=== PATIENT | female | born 1985 | race Caucasian/White ===

== ENCOUNTER 2022-07-06 16:52 | Emergency (ER) | payer OTHER, SELFPAY ==
[2022-07-06 17:01] VITALS: BP 115/79; PULSE 81; RESP 18; TEMP 36.2; O2SAT 100; BMI 23.4
--- NOTE | 2022-07-06 17:04 | ED.BACK ---
HPI - Back Pain/Injury General Chief Complaint: Back Injury/Pain Stated Complaint: BACK INJURY Time Seen by Provider: 07/06/22 17:04 History of Present Illness HPI Narrative: 37-year-old female patient presents emergency department after stating that she fell down her steps (3-4) approximately 3-4 days prior 07/01/2022. Patient states since that time, she has developed increasing fatigue, myalgias, and now headache. In addition, she reports low back pain associated with the fall. She denies URI symptoms, cough, ear pain, or shortness of breath. She denies chest pain, abdominal pain, but she does report 1 episode of diarrhea 1 day prior to presentation. She reports some nausea without vomiting. She denies hitting her head or loss of consciousness during the fall. She is uncertain of the mechanism of fall. See nursing notes for details. Related Data Home Medications Medication Instructions Recorded Confirmed lorazepam 0.5 mg tablet 0.5 mg PO TID PRN 07/04/22 Previous Rx's Medication Instructions Recorded citalopram 20 mg tablet 30 mg PO QDAY #135 tabs 07/04/22 tramadol 50 mg tablet (Ultram) 50 mg PO BID PRN pain #6 tabs 07/06/22 Allergies Allergy/AdvReac Type Severity Reaction Status Date / Time Sulfa Drugs Allergy Mild Rash Uncoded 07/04/22 09:18 Review of Systems Const: Denies: fever, chills, fatigue or malaise ENMT: Denies: throat pain, ear pain, nasal discharge or nasal congestion Cardio: Denies: chest pain, palpitations, swelling of feet/ankles or shortness of breath with exertion Resp: Denies: shortness of breath or cough GI: Reports: nausea and diarrhea; Denies: abdominal pain, vomiting or constipation Musculo: Reports: back pain Neuro: Reports: headache; Denies: difficulty communicating thoughts Endo: Denies: fatigue PFSH PFSH Social History Smoking Status: Never smoker How often do you have a drink containing alcohol: monthly or less AUDIT-C Alcohol total score: 1 Non-prescribed substance use: denies use service: No Exam Const: Vital Signs, click to edit/add: Vital Signs - 24 hr 07/06/22 17:01 07/06/22 17:35 07/06/22 21:18 Temperature 97.2 F L 97.2 F L Pulse Rate [Right Pulse Oximeter] 81 81 66 Respiratory Rate 18 18 66 H Blood Pressure [Ri ght Upper Arm] 115/79 115/79 108/71 Pulse Oximetry 100 100 97 Oxygen Delivery Me thod Room Air Room Air Room Air Documenting provider has reviewed patient's vital signs: yes Common normals: no apparent distress and oriented x3 General appearance: cooperative, comfortable and well developed; not in distress Orientation/consciousness: Yes awake, Yes oriented to person, Yes oriented to place and Yes oriented to time HENMT: Common normals: normocephalic, head/scalp atraumatic, hearing grossly normal bilaterally and external ears normal Head and scalp: normocephalic and atraumatic Face and sinus: normal facial exam (limited by masking) External ear: external ears normal Eye: Common normals: EOMs intact bilaterally General eye: normal appearance of both eyes Resp: Common normals: normal respiratory effort, no retractions, no use of accessory muscles and clear to auscultation bilaterally Effort & inspection: able to speak in complete sentences Auscultation: clear to auscultation bilaterally Cardio: Common normals: regular rate, regular rhythm, S1 normal heart sound, S2 normal heart sound, no gallops, no clicks, no murmurs and peripheral pulses 2+ throughout Rate: regular rate Rhythm: regular rhythm Heart sounds: S1 normal and S2 normal Peripheral pulses: pulses 2+ throughout Back & Pelvis: Common normals: thoracic and lumbar spine normal to inspection and no thoracic nor lumbar tenderness Lumbar spine/lower back: ROM limited Pelvis: no pain with anterior-posterior compression and no pain with lateral compression Sacrum: tenderness midline Coccyx: tenderness on direct palpation Extremity: Common normals: normal to inspection, full ROM, normal capillary refill, no clubbing, cyanosis or edema and no pedal edema Neuro: Common normals: oriented x3 Sensorium/orientation: awake, oriented to person, oriented to place and oriented to time Speech: speech normal Gait (neuro): normal gait Motor exam: no movement abnormalities noted Psych: Common normals: mental status grossly normal, thought process normal, speech normal and activity/motor behavior normal Appearance: grossly normal Speech: normal speech Thought process: normal thought process Thought content: normal thought content Attention/concentration: attention grossly intact Memory/cognition: memory grossly intact Insight: insight good Judgement: judgment good Skin: Common normals: no rashes or lesions noted General skin exam: no rashes or lesions noted Course Vital Signs Vital signs: Initial Vital Signs Temperature 97.2 F L 07/06/22 17:01 Temperature Source Temporal Artery Scan 07/06/22 17:01 Pulse Rate 81 07/06/22 17:01 Respiratory Rate 18 07/06/22 17:01 Blood Pressure 115/79 07/06/22 17:01 Blood Pressure Mean 91 07/06/22 17:01 Pulse Oximetry 100 07/06/22 17:01 Oxygen Delivery Method 07/06/22 17:01 Vital Signs Temperature 97.2 F L 07/06/22 17:01 Pulse Rate 81 07/06/22 17:01 Respiratory Rate 18 07/06/22 17:01 Blood Pressure 115/79 07/06/22 17:01 Pulse Oximetry 100 07/06/22 17:01 Oxygen Delivery Method 07/06/22 17:01 Temperature 97.2 F L 07/06/22 17:35 Pulse Rate 66 07/06/22 21:18 Respiratory Rate 66 H 07/06/22 21:18 Blood Pressure 108/71 07/06/22 21:18 Pulse Oximetry 97 07/06/22 21:18 Oxygen Delivery Method 07/06/22 21:18 MDM - Back Pain/Injury MDM Narrative Medical decision making narrative: Life-threatening differential diagnoses considered include: cauda equina and epidural abscess, mass, or lesion. Other differential diagnoses considered include: sprain or strain, contusion, nerve root entrapment, radiculopathy, muscle spasm, urolithiasis, lumbar fracture, pyelonephritis, ovaries injury, as well as other etiologies. The patient denied saddle anesthesia, bowel or bladder incontinence, or lower extremity weakness. Lab Data Labs: Lab Results 07/06/22 07/06/22 07/06/22 Range/Units 17:28 18:15 18:22 WBC 7.63 (4.50-11.00) K/uL RBC 4.34 (4.00-5.20) m/uL Hgb 11.7 L (12.0-16.0) gm/dL Hct 36.8 (33.0-51.0) % MCV 85 (80-100) fL MCH 27 (26-34) pg MCHC 32 (32-36) gm/dL RDW Coeff of Jamie 12.9 (11.5-15.5) % Plt Count 235 (140-440) K/uL Neut % (Auto) 67.2 (42.0-72.0) % Lymph % (Auto) 25.0 (20-44) % [place] % (Auto) 6.8 (0.0-11.0) % Eos % (Auto) 0.4 (0.0-7.0) % Baso % (Auto) 0.3 (0.0-3.0) % Neut # (Auto) 5.13 (1.7-7.0) K/uL Lymph # (Auto) 1.91 (0.90-2.90) K/uL [place] # (Auto) 0.50 (0.00-0.90) K/UL Eos # (Auto) 0.03 (0.00-0.50) K/uL Baso # (Auto) 0.02 (0.00-0.30) K/uL Abs Immat Gran (auto) 0.02 (0.00-0.30) K/uL Sodium (135-149) mmol/L Potassium (3.6-5.1) mmol/L Chloride (96-114) mmol/L Carbon Dioxide (20-32) mmol/L BUN (5-24) mg/dL Creatinine (0.5-1.5) mg/dL Estimated Creat Clear Estimated GFR ml/min Glucose (60-115) mg/dL Calcium (8.4-10.6) mg/dL Total Bilirubin (0.1-1.5) mg/dL AST (12-35) U/L ALT (4-35) U/L Alkaline Phosphatase (40-150) U/L Total Protein (6.0-8.3) g/dL Albumin (3.3-5.0) g/dL Urine Color Yellow (Yellow) Urine Appearance Clear (Clear) Urine pH 6.5 (5.0-8.5) Ur Specific [place] 1.015 (1.000-1.030) Urine Protein Negative (Negative) Urine Glucose (UA) Negative (Negative) Urine Ketones 1+ A (Negative) Urine Blood Negative (Negative) Urine Nitrite Negative (Negative) Urine Bilirubin Negative (Negative) Urine Urobilinogen 0.2 (0.2-1.0) Ur Leukocyte Esterase Negative (Negative) SARS-CoV-2 (PCR) Negative SARS-CoV-2 (Negative) 07/06/22 Range/Units 18:22 WBC (4.50-11.00) K/uL RBC (4.00-5.20) m/uL Hgb (12.0-16.0) gm/dL Hct (33.0-51.0) % MCV (80-100) fL MCH (26-34) pg MCHC (32-36) gm/dL RDW Coeff of Jamie (11.5-15.5) % Plt Count (140-440) K/uL Neut % (Auto) (42.0-72.0) % Lymph % (Auto) (20-44) % [place] % (Auto) (0.0-11.0) % Eos % (Auto) (0.0-7.0) % Baso % (Auto) (0.0-3.0) % Neut # (Auto) (1.7-7.0) K/uL Lymph # (Auto) (0.90-2.90) K/uL [place] # (Auto) (0.00-0.90) K/UL Eos # (Auto) (0.00-0.50) K/uL Baso # (Auto) (0.00-0.30) K/uL Abs Immat Gran (auto) (0.00-0.30) K/uL Sodium 135 (135-149) mmol/L Potassium 4.3 (3.6-5.1) mmol/L Chloride 104 (96-114) mmol/L Carbon Dioxide 26 (20-32) mmol/L BUN 13 (5-24) mg/dL Creatinine 0.7 (0.5-1.5) mg/dL Estimated Creat Clear 85.34 Estimated GFR 113 ml/min Glucose 91 (60-115) mg/dL Calcium 8.5 (8.4-10.6) mg/dL Total Bilirubin 1.4 (0.1-1.5) mg/dL AST 27 (12-35) U/L ALT 11 (4-35) U/L Alkaline Phosphatase 61 (40-150) U/L Total Protein 7.1 (6.0-8.3) g/dL Albumin 4.1 (3.3-5.0) g/dL Urine Color (Yellow) Urine Appearance (Clear) Urine pH (5.0-8.5) Ur Specific [place] (1.000-1.030) Urine Protein (Negative) Urine Glucose (UA) (Negative) Urine Ketones (Negative) Urine Blood (Negative) Urine Nitrite (Negative) Urine Bilirubin (Negative) Urine Urobilinogen (0.2-1.0) Ur Leukocyte Esterase (Negative) SARS-CoV-2 (PCR) (Negative) Discharge Plan Discharge Clinical Impression: Fall (on) (from) other stairs and steps, initial encounter, Myalgia, traumatic Patient Disposition: Home, Self-Care Condition: Stable Instructions: Bone Bruise (ED) Additional Instructions: Thank you for choosing [facility] for your care today. Take NSAIDs (Ibuprofen, Motrin, Advil, or substitute) 600-800mg three times daily for the next three days. Decrease to twice daily for the next two days. Take NSAIDs once daily for 1wk. I have also sent pain medication. Please take pain medication as prescribed. Patient also given prescription for muscle relaxant to assist with control of symptoms. The patient is advised to use heat/ice as needed for symptom control. I recommend following up with your primary physician in 1-2wks if a significant improvement of symptoms is not noted. Continue routine activity as tolerated. You may consider topical medications including capsaicin or lidocaine patches to assist with symptom control. If new or worsening symptoms develop or you have any concerns in the meantime, please call your primary care clinic or return to the ER for re-evaluation. Activity Level: Activity as Tolerated Discharge Diet: Regular and Heart Healthy (2 gm sodium, low fat) Diet Detail: Increase water intake. Prescriptions: New tramadol [Ultram] 50 mg tablet 50 mg PO BID PRN (Reason: pain) Qty: 6 0RF No Action lorazepam 0.5 mg tablet 0.5 mg PO TID PRN citalopram 20 mg tablet 30 mg PO QDAY Qty: 135 3RF Follow Up/Referrals: Humberto Boyd MD [Primary Care Provider] - 07/13/22 Stand Alone Forms: [employer] Info Instructions
[2022-07-06] MEDS: KETOROLAC 30 MG/ML inj IM (17:28)
[2022-07-06 17:35] VITALS: BP 115/79; PULSE 81; RESP 18; TEMP 36.2; O2SAT 100
[2022-07-06] MEDS: 0.9 % SODIUM CHLORIDE 1000 ml 1,000 ML IV (18:24)
[2022-07-06] MEDS: MORPHINE 2 MG/ML inj IVP (18:39)
[2022-07-06] MEDS: ONDANSETRON ODT 4 MG TAB PO (18:39)
[2022-07-06 18:45] LABS: Basophils Absolute Auto 0.02 K/uL (0.00-0.30); Basophils Percent Auto 0.3 % (0.0-3.0); Eosinophils Absolute Auto 0.03 K/uL (0.00-0.50); Eosinophils Percent Auto 0.4 % (0.0-7.0); Hematocrit 36.8 % (33.0-51.0); Hemoglobin* 11.7 gm/dL (12.0-16.0); Immature Granulocytes Abs Auto 0.02 K/uL (0.00-0.30); Lymphocytes Absolute Auto 1.91 K/uL (0.90-2.90); Mean Corpuscular HGB Conc 32 gm/dL (32-36); Mean Corpuscular Hemoglobin 27 pg (26-34); Mean Corpuscular Volume 85 fL (80-100); Monocytes Percent Auto 6.8 % (0.0-11.0); Neutrophils Absolute Auto 5.13 K/uL (1.7-7.0); Neutrophils Percent Auto 67.2 % (42.0-72.0); Platelet Count* 235 K/uL (140-440); RDW Coefficient of Variation % 12.9 % (11.5-15.5); Red Blood Count 4.34 m/uL (4.00-5.20); White Blood Count* 7.63 K/uL (4.50-11.00)
[2022-07-06 18:50] LABS: Appearance Urine Clear (Clear); Bilirubin Urine Negative (Negative); Blood Urine Negative (Negative); Color Urine Yellow (Yellow); Glucose Urine Negative (Negative); Ketones Urine 1+ (Negative); Leukocyte Esterase Urine Negative (Negative); Nitrite Urine Negative (Negative); Protein Urine Negative (Negative); Specific Gravity Urine 1.015 (1.000-1.030); Urobilinogen Urine 0.2 (0.2-1.0); pH Urine 6.5 (5.0-8.5)
[2022-07-06 18:52] LABS: SARS PCR* Negative SARS-CoV-2 (Negative)
[2022-07-06 18:52] LABS: Slide Review Reflex No
[2022-07-06 19:16] LABS: Albumin* 4.1 g/dL (3.3-5.0); Chloride* 104 mmol/L (96-114); Sodium* 135 mmol/L (135-149)
[2022-07-06 19:17] LABS: Potassium* 4.3 mmol/L (3.6-5.1)
[2022-07-06 19:19] LABS: Alanine Aminotransferase* 11 U/L (4-35); Alkaline Phosphatase* 61 U/L (40-150); Aspartate Amino Transferase* 27 U/L (12-35); Bilirubin Total* 1.4 mg/dL (0.1-1.5); Blood Urea Nitrogen* 13 mg/dL (5-24); Carbon Dioxide* 26 mmol/L (20-32); Creatinine* 0.7 mg/dL (0.5-1.5); Est. Creatinine Clearance* 85.34; Estimated Glomerular Filt Rate 113 ml/min; Glucose* 91 mg/dL (60-115); Total Protein* 7.1 g/dL (6.0-8.3)
[2022-07-06 19:20] LABS: Calcium* 8.5 mg/dL (8.4-10.6)
--- NOTE | 2022-07-06 19:43 | CRLHL7_ITS ---
For Patients: As a result of the Century Cures Act, medical imaging exams and procedure reports are released immediately into your electronic medical record. You may view this report before your referring provider. If you have questions, please contact your health care provider. INDICATION: Fall with acute headache TECHNIQUE: CT head without contrast. COMPARISON: None FINDINGS: CSF spaces: Within normal limits for age. Brain parenchyma: The goff-white differentiation is normal. No sign of mass, hemorrhage, or midline shift. Skull base and calvarium: The visualized paranasal sinuses and mastoid air cells demonstrate no acute or significant findings. The visualized orbits are grossly unremarkable. No skull fractures. IMPRESSION: Unremarkable noncontrast head CT. Please note that all CT scans at this facility use dose modulation, iterative reconstruction, and/or weight-based dosing when appropriate to reduce radiation dose to as low as reasonably achievable. Dictated by Jenny Davidson MD @ 07/06/2022 8:13:14 PM (Electronically Signed)
--- NOTE | 2022-07-06 19:43 | CRLHL7_ITS ---
For Patients: As a result of the Century Cures Act, medical imaging exams and procedure reports are released immediately into your electronic medical record. You may view this report before your referring provider. If you have questions, please contact your health care provider. INDICATION: Fall TECHNIQUE: CT cervical spine without contrast. COMPARISON: None FINDINGS: Vertebral alignment: Alignment is normal. Vertebrae: There are no fractures or suspicious bony lesions. Discs and facet joints: Disc spaces and facets are within normal limits. Extraspinal findings: Prevertebral soft tissues, visualized airway, and visualized lungs are unremarkable. IMPRESSION: Unremarkable cervical spine CT. Please note that all CT scans at this facility use dose modulation, iterative reconstruction, and/or weight-based dosing when appropriate to reduce radiation dose to as low as reasonably achievable. Dictated by Jenny Davidson MD @ 07/06/2022 8:16:25 PM (Electronically Signed)
[2022-07-06 21:18] VITALS: BP 108/71; PULSE 66; RESP 66; O2SAT 97
== END 2022-07-06 21:50 | disposition home or self-care (01) ==
PROVIDERS: Emergency Provider Family Medicine; PCP Family Medicine
DX: M54.9 Dorsalgia, unspecified (principal); W10.8XXA Fall (on) (from) other stairs and steps, initial encounter
CPT/HCPCS: 36415; 70450; 72125; 80053; 81003; 85025; 87635; 96372; 96374; 99283; 99284; A9270; J1885; J2270; J7030

== ENCOUNTER 2022-12-18 15:40 | Outpatient (CLI) | payer OTHER, SELFPAY ==
--- NOTE | 2022-12-18 15:40 | CRLHL7_ITS ---
For Patients: As a result of the Century Cures Act, medical imaging exams and procedure reports are released immediately into your electronic medical record. You may view this report before your referring provider. If you have questions, please contact your health care provider. BILATERAL SCREENING MAMMOGRAM WITH COMPUTER-AIDED DETECTION AND TOMOSYNTHESIS TECHNIQUE: CC and MLO views were obtained. These mammographic images have been obtained using full-field digital technique. These mammographic images were interpreted with the benefit of computer-aided detection. Breast Tomosynthesis was used in this interpretation. COMPARISON FILM: 05/26/21, 09/01/19. FINDINGS: There are scattered areas of fibroglandular density IMPRESSION: There is no radiographic evidence for malignancy. ASSESSMENT: BI-RADS Category 1: Negative RECOMMENDATION: Routine screening mammogram in 1 year. A lay language report of this examination will be provided to the patient. Jeison Goff M.D. Diagnostic Radiologist [email or web address] CONRAD/Dictated by: Jeison Goff MD @ 12/19/2022 11:07:00 AM (Electronically Signed)
== END 2022-12-18 15:41 | disposition home or self-care (01) ==
LOC: MAMMO 15:41
PROVIDERS: PCP Family Medicine; Visit Provider Family Medicine
DX: Z12.31 Encounter for screening mammogram for malignant neoplasm of breast (principal)
CPT/HCPCS: 77063; 77067

== ENCOUNTER 2023-07-09 16:45 | Outpatient (RCR) | payer OTHER, SELFPAY | END 2023-10-11 11:42 | disposition home or self-care (01) | PROVIDERS: PCP Family Medicine; Visit Provider Internal Medicine | DX: M54.2 Cervicalgia (principal); Z51.89 Encounter for other specified aftercare | CPT/HCPCS: 97032; 97110; 97140; 97161 ==

== ENCOUNTER 2024-10-19 17:43 | Outpatient (CLI) | payer OTHER, SELFPAY ==
--- OUTSIDE RECORDS SUMMARY | 2024-10-19 17:45 | XMS_ITS | Clinical Summary ---
Author Organization [facility] Address [address] [address] Phone Care Team Providers Care Sales Operations Assistant Name Role Phone Unavailable Primary Care Provider Unavailabl e Allergies Active Allergy Reactions Criticality Noted Date Comments Sulfa Drugs Unknown 11/21/2023 Social History Tobacco Use Types Packs/Day Years Used Date Smoking Tobacco: Never Assessed EH IP Custom IPV Answer Date Recorded Do you feel UNSAFE in any of your personal relationships with your family members or any other acquaintances? No 2023 Comments Unknown Sex and Gender Information Value Date Recorded Sex Assigned at Not on file Legal Sex Female 12:00 PM MEDIA THEORIST AND AUTHOR OF Gender Identity Not on file Sexual Orientation Not on file Last Filed Vital Signs Vital Sign Reading Time Taken Comments Blood Pressure 144/91 11/21/2023 12:53 PM MEDIA THEORIST AND AUTHOR OF Pulse 78 11/21/2023 12:53 PM MEDIA THEORIST AND AUTHOR OF Temperature 36.6 C (97.8 F) 11/21/2023 12:53 PM MEDIA THEORIST AND AUTHOR OF Respiratory Rate 24 11/21/2023 12:53 PM MEDIA THEORIST AND AUTHOR OF Oxygen Saturation 100% 11/21/2023 12:53 PM MEDIA THEORIST AND AUTHOR OF Inhaled Oxygen Concentration - - Weight - - Height - - Body Mass Index - - Plan of Treatment Not on file Insurance [employer]
--- OUTSIDE RECORDS SUMMARY | 2024-10-19 17:45 | XMS_ITS | Clinical Summary ---
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 Blood product orders may be delayed. Please draw 2 purple and 2 large red top tubes for all Type and Screen/RBC orders. Sulfa (Sulfonamide Antibiotics) Rash 07/09/2014 Medications VIT/IRON FUMARATE/FA ( ORAL) Take by mouth. Activ e citalopram (CELEXA) 10 mg tablet Take 20 mg by mouth once daily. Active oxyCODONE-acet aminophen, 5-325 mg, (PERCOCET) per tablet Take 1-2 tablets by mouth every 4 hours if needed for Pain (For moderate to severe pain.). Max acetaminophen dose: 4000mg in 24 hrs. 30 tablet 08/20/2014 10:53 AM CDT 4 Active ibuprofen (MOTRIN IB) 200 mg tablet Take 1-3 tablets by mouth every 6 hours if needed for Other (Specify) (for uterine cramping). Take with food. 100 tablet 0 4 Active ferrous sulfate, 65 mg elemental, 325 mg (65 mg iron) tablet Take 1 tablet by mouth once daily with a meal. 100 tablet 0 4 Active Breast Pump - Purchase For home use. Gestation age at delivery: 38 weeks. Reason for need: lactating mother - twins. Length of need: 12 mo 1 Device 0 4 Active Breast Pump-Rental For home use. Gestation age at delivery: 38 weeks. Reason for need: twins, lactating mother. Length of need: 6 mo. 1 Device 0 4 Active Active Problems Problem Noted Date Diagnosed Date Immediate hemorrhage, with delivery 1 Overview (08/18/2014): With Postoperative anemia due to acute blood loss 06/2014 Failed induction of labor 08/17/2014 Arrest of dilation, delivered, current hospitali zation 08/17/2014 delivery delivered 08/17/2014 Supervision of high-risk 08/17/2014 Dichorionic diamniotic twin 08/13/2014 Social History Tobacco Use Types Packs/Day Years Used Date Smoking Tobacco: Never Smokeless Tobacco: Never Alcohol Use Standard Drinks/Week Comments Not Asked 0 (1 standard drink = 0.6 oz pur e alcohol) Comments No Sex and Gender Information Value Date Recorded Sex Assigned at Not on file Legal Sex Female 8:24 AM CDT Gender Identity Not on file Sexual Orientation Not on file Obstetrics History Para Term AB IAB SAB Ectopic Multiple Livin g Live Births 1 1 1 1 2 2 Date Outcome GA Total Labor Labor/2nd/3rd Weight Sex Type Anes PTL Kavya A1 A5 Name Clin 014 Term 38w 2d 2.75 kg (6 lb 1 oz) M CS-LT ranv Living 4 6 ROOT, BB ONE Delivery Location:[facility] 014 Term 38w 2d 2.58 kg (5 lb 11 oz) F CS-LT ranv Living 8 9 ROOT, BG TWO Delivery Location:[facility] Last Filed Vital Signs Vital Sign Reading Time Taken Comments Blood Pressure 150/83 08/20/2014 11:00 AM CDT up walking in room Pulse 86 08/20/2014 11:00 AM CDT Temperature 36.8 C (98.3 F) 08/20/2014 8:48 AM CDT Respiratory Rate 16 08/20/2014 11:0 0 AM CDT Oxygen Saturation 98% 08/20/2014 11: 00 AM CDT Inhaled Oxygen Concentration - - Weight 81.1 kg (178 lb 11.2 oz) 08/20/2014 12:16 AM CDT Height 156.2 cm (5' 1.5) 08/15/2014 4: 00 PM CDT Body Mass Index 33.22 08/15/2014 4:00 PM CDT Plan of Treatment Health Maintenance Due Date Last Done Comments Tdap 1994 Depression screening for age 12+ 1995 HIV for age 15-65 1998 BMI (ht and wt on same day) for age 18+ 2001 Hepatitis C screening for ag e 18-79 2001 Tetanus booster 2003 Pap test for age 21-65 07/03/2022 9, 07/03/2019 COVID-19 vaccine series (2023- season) 2024 Influenza for age 9-49 07/12/2024 Pneumococcal series for age 6-64 Aged Out No longer eligible b ased on patient's age to complete this topic Procedures Procedure Name Priority Date/Time Associated Diagnosis Comments GRIEF COUNSELOR THIN PREP PAP SCREEN IMAGED Routine 07/03/2019 9:30 AM CDT from Last 3 Months or Most Recently Relevant to Health Maintenance Results * GRIEF COUNSELOR THIN PREP PAP SCREEN IMAGED (07/03/2019 9:30 AM CDT) Case Report Gynecologic Cytology Report Case: [id number] Authorizing Provider: Humberto Boyd MD Collected: 07/03/2019 0930 Ordering Location: [facility] Received: 07/03/2019 1728 First Screen: Roxanne Mcleod Specimen: GRIEF COUNSELOR ThinPrep Vial Screening, Cervical/Vaginal 07/15/2019 1:37 PM CDT [facility] INTERPRETATION/ RESULT NEGATIVE FOR INTRAEPITHELIAL LESION OR MALIGNANCY (NIL) (none) 07/15/2019 1:37 PM CDT [facility] IMEN ADEQUACY Satisfactory for evaluation Endocervical component present 07/15/2019 1:37 PM CDT [facility] HPV REQUEST HPV and PAP 07/15/2019 1:37 PM CDT [facility] Date of LMP 06/07/2019 07/15/2019 1:37 PM CDT [facility] Last Pap Date 07/15/2019 1:37 PM CDT [facility] Comment:2012 Automated Review Successful 07/15/2019 1:37 PM CDT [facility] Comment:Specimen processed s uccessfully by automated shear operator helper device, FlavourlyPrep Imaging System, [employer] ANCILLARY TESTING GRIEF COUNSELOR HPV Ordered, Please see separate report 07/15/2019 1:37 PM CDT [facility] Note The pap test is a screening technique, not a diagnostic procedure. It is used primarily to screen for squamous cancers and precursor lesions. Published studies have shown that it is subject to both false negative and false positive results. The pap test should not be used as the sole means to diagnose or exclude pre-malignant and malignant lesions. Cytology is screened and interpreted at [facility] - [address], [place] [address] and [facility] - [address]; [place] [address] and [facility] - [address]; [place] [address] and [facility] [address]; [place] [address] 07/15/2019 1:37 PM CDT [facility] Other (Cervical/Vagina l) 07/03/2019 9:30 AM CDT 07/03/2019 5:28 PM CDT us Humberto Boyd MD PATHOLOGY/CYTOLOGY Final Re sult [facility] [address] [place] [address], from Last 3 Months or Most Recently Relevant to Health Maintenance Insurance [facility] Advance Directives * Full Code (Latest Code Status on File) Date Activated Date Inactivated Comments 08/15/2014 4:19 PM 08/17/2014 2:45 PM Care Teams Stunt Performer Relationship Specialty Start Date End Date Jennifer Gay DO [address] [place] [id number] PCP - General Obstetrics and Gynecology 06/17/14
[2024-10-22 02:11] LABS: HPV Source Cervix; HPV, High Risk by TMA Not Detected
== END 2024-10-19 17:44 | disposition home or self-care (01) ==
PROVIDERS: PCP Family Medicine; Visit Provider Physician Assistant
DX: Z12.4 Encounter for screening for malignant neoplasm of cervix (principal)
CPT/HCPCS: 87624; 87625; 88141; 88142

== ENCOUNTER 2024-10-22 15:07 | Outpatient (CLI) | payer OTHER, SELFPAY | END 2024-10-22 15:08 | disposition home or self-care (01) | LOC: NFLDREF 10-23 08:46 | PROVIDERS: PCP Family Medicine; Referring Provider Family Medicine; Visit Provider Physician Assistant | DX: Z13.220 Encounter for screening for lipoid disorders (principal); Z13.1 Encounter for screening for diabetes mellitus | CPT/HCPCS: 80061; 82947 ==

== ENCOUNTER 2024-10-22 15:11 | Outpatient (CLI) | payer OTHER, SELFPAY ==
--- NOTE | 2024-10-22 15:40 | CRLHL7_ITS ---
For Patients: As a result of the Century Cures Act, medical imaging exams and procedure reports are released immediately into your electronic medical record. You may view this report before your referring provider. If you have questions, please contact your health care provider. BILATERAL SCREENING MAMMOGRAM WITH COMPUTER-AIDED DETECTION AND TOMOSYNTHESIS TECHNIQUE: CC and MLO views were obtained. These mammographic images have been obtained using full-field digital technique. These mammographic images were interpreted with the benefit of computer-aided detection. Breast Tomosynthesis was used in this interpretation. COMPARISON FILM: 12/18/22. FINDINGS: The breasts are heterogeneously dense, which may obscure small masses. IMPRESSION: There is no radiographic evidence for malignancy. ASSESSMENT: BI-RADS Category 2: Benign RECOMMENDATION: Routine screening mammogram in 1 year. A lay language report of this examination will be provided to the patient. Jeison Goff M.D. Diagnostic Radiologist [email or web address] SP/Dictated by: Jeison Goff MD @ 10/23/2024 10:28:00 AM (Electronically Signed)
== END 2024-10-22 15:12 | disposition home or self-care (01) ==
LOC: MAMMO 15:11
PROVIDERS: PCP Family Medicine; Visit Provider Obstetrics & Gynecology
DX: Z12.31 Encounter for screening mammogram for malignant neoplasm of breast (principal); R92.333 Mammographic heterogeneous density, bilateral breasts
CPT/HCPCS: 77063; 77067

== ENCOUNTER 2025-02-18 12:48 | Emergency (ER) | payer OTHER, SELFPAY ==
--- OUTSIDE RECORDS SUMMARY | 2025-02-18 12:50 | XMS_ITS | Clinical Summary ---
Author Organization [facility] Address [address] [address] Phone Care Team Providers Care Hydrate Control Tender Name Role Phone Unavailable Primary Care Provider [...] on file Legal Sex Female 12:00 PM ANIMAL NURSERY WORKER Gender Identity Not on file Sexual Orientation Not on file Last Filed Vital Signs Vital Sign Reading Time Taken Comments Blood Pressure 144/91 11/21/2023 12:53 PM ANIMAL NURSERY WORKER Pulse 78 11/21/2023 12:53 PM ANIMAL NURSERY WORKER Temperature 36.6 C (97.8 F) 11/21/2023 12:53 PM ANIMAL NURSERY WORKER Respiratory Rate 24 11/21/2023 12:53 PM ANIMAL NURSERY WORKER Oxygen Saturation 100% 11/21/2023 12:53 PM ANIMAL NURSERY WORKER Inhaled Oxygen Concentration - - Weight - - Height - - Body Mass Index - - Plan of Treatment Not on file Insurance [employer]
--- OUTSIDE RECORDS SUMMARY | 2025-02-18 12:50 | XMS_ITS | Clinical Summary ---
Author Organization [facility] Address [address] [place] [address] Care Team Providers Care Non Destructive Testing Technician Name Role Phone Jennifer Gay DO Primary [...] 08/17/2014 Arrest of dilation, delivered, current hospital[facility] 08/17/2014 delivery delivered 08/17/2014 Supervision of high-risk [...] Anes PTL Kavya A1 A5 Name Clin Term 38w 2d 2.75 kg (6 lb 1 oz) M CS-LT ranv Living 4 6 ROOT, BB ONE Delivery Location:[facility] 014 Term 38w 2d 2.58 kg (5 lb 11 oz) F CS-LT ranv Living 8 9 ROOT, BG TWO Delivery Location:[facility] Last Filed Vital Signs Vital Sign Reading [...] 2003 Pap test for age 21-65 07/03/2022 , 07/03/2019 COVID-19 vaccine series (2023- season) 2024 Influenza Vaccine (Season Ended) 2025 Pneumococcal series for age 6-49 Aged Out No longer eligible b ased on patient's age to complete this topic Procedures Procedure Name Priority Date/Time Associated Diagnosis Comments INVESTIGATOR FRAUD THIN PREP PAP SCREEN IMAGED Routine 07/03/2019 9:30 AM CDT from Last 3 Months or Most Recently Relevant to Health Maintenance Results * INVESTIGATOR FRAUD THIN PREP PAP SCREEN IMAGED (07/03/2019 9:30 AM CDT) Case Report Gynecologic Cytology Report Case: [id number] Authorizing Provider: Humberto Boyd MD Collected: 07/03/2019 0930 Ordering Location: [facility] Received: 07/03/2019 1728 First Screen: Roxanne Mcleod Specimen: INVESTIGATOR FRAUD ThinPrep Vial Screening, Cervical/Vaginal 07/15/2019 1:37 PM CDT [facility] ENTRAL LABORATORY INTERPRETATION/ RESULT NEGATIVE FOR INTRAEPITHELIAL LESION OR MALIGNANCY (NIL) (none) 07/15/2019 1:37 PM CDT [facility] ENTRAL LABORATORY at 1337 CDT SPECIMEN ADEQUACY Satisfactory for evaluation Endocervical component present 07/15/2019 1:37 PM CDT [facility] ENTRAL LABORATORY HPV REQUEST HPV and PAP 07/15/2019 1:37 PM CDT [facility] ENTRAL LAB[facility]AT[facility] Date of LMP 06/07/2019 07/15/2019 1:37 PM CDT [facility]- ENTRAL LAB[facility]AT[facility] Last Pap Date 07/15/2019 1:37 PM CDT [facility] ENTRAL LABORATORY Comment:2012 Automated Review Successful 07/15/2019 1:37 PM CDT [facility] ENTRAL LABORATORY Comment:Specimen processed s uccessfully by automated usps letter carrier device, ThinPrep Imaging System, [employer] ANCILLARY TESTING INVESTIGATOR FRAUD HPV Ordered, Please see separate report 07/15/2019 1:37 PM CDT [facility] ENTRAL LABORATORY Note The pap test is a [...] lesions. Cytology is screened and interpreted at [facility] - [address], [place] [address] and [facility] - [address]; [place] [address] and [facility] - [address]; [place] [address] and [facility] [address]; [place] [address] 07/15/2019 1:37 PM CDT [facility] ENTRDE LABORATORY Other (Cervical/Vagina l) 07/03/2019 9:30 AM CDT 07/03/2019 5:28 PM CDT us Humberto Boyd MD PATHOLOGY/CYTOLOGY Final [facility] [address] [place] [address], [place] from Last 3 Months or Most Recently Relevant to Health Maintenance Insurance [facility] Advance Directives * Full Code (Latest Code Status on File) Date Activated Date Inactivated Comments 08/15/2014 4:19 PM 08/17/2014 2:45 PM Care Teams Non Destructive Testing Technician Relationship Specialty Start Date End Date Jennifer Gay DO [address] [address] PCP - General Obstetrics and Gynecology 06/17/14
[2025-02-18 13:11] VITALS: BP 118/80; PULSE 86; RESP 18; TEMP 37.3; O2SAT 100; BMI 23.8
--- NOTE | 2025-02-18 13:22 | ED_ITS ---
HPI - General Adult General Date Seen: 02/18/25 Chief complaint: Neck Injury/Pain Stated complaint: neck pain- left arm numness Time Seen by Provider: 02/18/25 13:14 History of Present Illness HPI narrative: 40 yo F presenting for pain in her left neck and shoulder. According triage nurses she has had trouble with neck pain since 2022 and has had physical therapy and care professionals. This morning her pain worsened. She rates it /10. Per medical record she has a visit to the primary clinic with Dr. Staton in May 2023 for neck pain. According to note pain at been ongoing off and on for several months at that time. She was referred for physical therapy. Given a prescription for steroids. She has been dealing with her neck pain off and on since then. She was referred to physical therapy and did that. She has also been seeing a chiropractor. Her chiropractor had recommended several months ago that she get imaging of her neck but she has been putting it off since has not been too severe. She is otherwise generally healthy. No history of diabetes, cancer, immunosuppression. She has no recent injury or any change in her activity. She was awoken from sleep at about 3:00 a.m. this morning with new bad pain affecting her left neck, left shoulder and radiating down her left arm. She feels like her left arm is a little bit numb and heavy. She does not really localize the most any particular spot but if anything gets worse in the finger tips than in the upper arm. No right arm symptoms. No pain in her low back or legs. No headache. No blurry vision. No trouble hearing. No double vision. Related Data Previous Rx's ?Medication ?Instructions ?Recorded lorazepam 0.5 mg tablet 0.5 mg PO TID PRN anxiety #30 tabs 09/21/24 citalopram 20 mg tablet 30 mg (1.5 x 20 mg) PO QDAY #135 02/16/25 tabs hydrocodone 5 mg-acetaminophen 325 1 tab PO Q6H PRN pain #10 tabs 02/18/25 mg tablet methylprednisolone 4 mg tablets in See Rx Instructions PO .COMPLEX 02/18/25 a dose pack (Medrol (Jefe)) #21 ea Allergies Allergy/AdvReac Type Severity Reaction Status Date / Time Sulfa (Sulfonamide Allergy Mild Rash Verified 02/18/25 13:11 Antibiotics) [facility] Surgical History Status post D&C ?Z98.890 - Other specified postprocedural states (ICD-10) S/P tubal ligation ?Z98.51 - Tubal ligation status (ICD-10) Status post ?Z98.891 - History of uterine scar from previous surgery (ICD-10) Family History Mother Breast cancer, Onset Age: 67 Ovarian cancer, Onset Age: 66 Aunt Breast cancer, Onset Age: 40 Maternal Grandmother Breast cancer Paternal Grandmother Breast cancer Social History Narrative: Teacher. Master's degree Nonsmoker Alcohol use: 1-2 per month What is your current living situation?: I presently have a place to live Problems where you live: no known problems and declined to answer In the past 12 months, utilities in danger of being shut off: no In past 12 months, lack of transportation kept you from medical appts, meetings, work, or getting things needed for daily living: no In the past 12 mos, have been you worried that your food would run out before you had money to buy more?: never true In the past 12 mos, the food you bought just didn't last and you didn't have money to buy more?: never true Smoking Status: Never smoker Do you use any of these nicotine containing products: None How often do you have a drink containing alcohol: monthly or less How many standard drinks containing alcohol do you have on a typical day: 1 or 2 How often do you have six or more drinks on one occasion: Never AUDIT-C Alcohol total score: 1 Non-prescribed substance use: denies use How often does anyone, including family, friends and others, physically hurt you : never How often does anyone, including family, friends and others, insult or talk down to you: rarely How often does anyone, including family, friends and others, threaten you with harm: never How often does anyone, including family, friends and others, scream or curse at you: rarely service: No Health Related Social Needs: Other personal risk factors, not elsewhere classified (Z91.89) Exam Narrative: Exam Narrative: Constitutional: Appears well-developed and well-nourished. Alert. Uncomfortable but Conversant. Non toxic. HENT: Head: Atraumatic. Nose: Nose normal. Mouth/Throat: Oral mucosa is clear and moist. no trismus. Pharynx normal. Tonsils symmetric. No tonsillar enlargement, erythema, or exudate. Eyes: Conjunctivae normal. EOM normal. Pupils equal, round, and reactive to light. No scleral icterus. Neck: Root lateral range of motion limited by pain and apprehension.. Neck supple. No tracheal deviation present. No JVD Cardiovascular: Normal rate, regular rhythm. No gallop. No friction rub. No murmur heard. Symmetric radial artery pulses Pulmonary/Chest: Effort normal. No stridor. No respiratory distress. No wheezes. No rales. No rhonchi Musculoskeletal: RUE: Normal range of motion. No tenderness. No deformity LUE: Normal range of motion. No tenderness. No deformity RLE: Normal range of motion. No edema. No tenderness. No deformity LLE: Normal range of motion. No edema. No tenderness. No deformity Lymph: No cervical adenopathy. Neurological: Alert and oriented to person, place, and time. Normal strength. CN II-VII intact. No sensory deficit. GCS eye subscore is 4. GCS verbal subscore is 5. GCS motor subscore is 6. Normal coordination Weigh Boss strength 5/5, finger abduction 5/5, thumb extension wrist extension 5/5 bilaterally. Biceps and triceps 5/5 bilaterally. She has a little bit weak with the left deltoid shoulder abduction, likely related to pain. She has subjective paresthesias in the left C6, C7, C8 dermatomes. Right upper extremity sensation normal Strength 5/5 bilaterally to both lower extremities. Intact sensory function of both lower extremities. Skin: No rash or redness or bruising on her neck. Skin is warm and dry. No rash noted. No pallor. Normal capillary refill. Psychiatric: Normal mood. Normal affect. Const: Vital Signs, click to edit/add: Vital Signs - 24 hr 02/18/25 13:11 02/18/25 15:18 Temperature 99.2 F Pulse Rate [Pulse Oximeter] 86 82 Respiratory Rate 18 16 Blood Pressure [Ri ght Upper Arm] 118/80 108/74 Pulse Oximetry 100 99 Oxygen Delivery Me thod Room Air Room Air Course Vital Signs Vital signs: Initial Vital Signs Temperature 99.2 F 02/18/25 13:11 Temperature Source Temporal Artery Scan 02/18/25 13:11 Pulse Rate 86 02/18/25 13:11 Pulse Rhythm Regular 02/18/25 13:11 Respiratory Rate 18 02/18/25 13:11 Blood Pressure 118/80 02/18/25 13:11 Blood Pressure Mean 92 02/18/25 13:11 Blood Pressure Position High-Fowlers 02/18/25 13:11 Pulse Oximetry 100 02/18/25 13:11 Oxygen Delivery Method Room Air 02/18/25 13:11 Vital Signs Temperature 99.2 F 02/18/25 13:11 Pulse Rate 86 02/18/25 13:11 Respiratory Rate 18 02/18/25 13:11 Blood Pressure 118/80 02/18/25 13:11 Pulse Oximetry 100 02/18/25 13:11 Oxygen Delivery Method Room Air 02/18/25 13:11 Temperature 99.2 F 02/18/25 13:11 Pulse Rate 82 02/18/25 15:18 Respiratory Rate 16 02/18/25 15:18 Blood Pressure 108/74 02/18/25 15:18 Pulse Oximetry 99 02/18/25 15:18 Oxygen Delivery Method Room Air 02/18/25 15:18 Medications Administered Medications: Discontinued Medications Generic Name Dose Route Start Last Admin Trade Name Freq PRN Reason Stop Dose Admin Ketorolac Tromethamine 30 mg 02/18/25 13:40 02/18/25 14:22 Ketorolac 30 Mg/Ml Inj IM 02/18/25 13:41 30 mg ONCE ONE Administration Prednisone 40 mg 02/18/25 13:40 02/18/25 14:17 Prednisone 20 Mg Tablet PO 02/18/25 13:41 40 mg ONCE ONE Administration Medical Decision Making [facility] Narrative Medical decision making narrative: Very pleasant 40-year-old female with a history of neck pain dating back a couple of years presenting to the ER today with an acute atraumatic exacerbation of neck pain with new left shoulder and left arm pain/left arm numbness that began overnight last night. Presentation here to the ER is suggestive for possible cervical radiculopathy, likely affecting her left C6 or C7 dermatome. She it is not otherwise immunosuppressed or diabetic she has no history of cancer. She is not anticoagulated. Overall would be at low risk for malignancy causing cervical compression or epidural hematoma or abscess. Given acute progression of chronic symptoms I did feel that MRI was indicated. MRI of her C-spine was obtained and fortunately shows mild degenerative disc disease but no definite nerve root or spinal cord compression. At this point no need for immediate surgical intervention. Patient's pain was somewhat improved after Toradol given here in the ER. At this point I think she is safe for outpatient management. She will start with Tylenol or ibuprofen if needed for pain. Will also supply prescription for [place] that she can use at night or for breakthrough pain. Opiate precautions reviewed. Will also start the patient on a Medrol Dosepak to see if we can help reduce however pain. She will follow-up with her primary care provider, Dr. Emmanuel, or with the [facility] for re-evaluation. Precautions for return to the ER reviewed. Imaging Data MRI C spine: Attestation: I have reviewed the pertinent imaging results. Radiologist's impression: Findings: Artifact degrades the axial T2 medic sequence. Hjhz-ur-yfoquxkx leftward cervical curvature. Straightening of the cervical lordosis. Vertebral heights are maintained. No acute fracture, spondylolisthesis, or traumatic subluxation. No T1 hypointense lesions or marrow edema the cervical cord is normal in signal intensity. C2-3: No spinal canal or neural foraminal narrowing. C3-4: Annular bulge. No spinal canal or neural foraminal narrowing. C4-5: Annular bulge. No spinal canal or neural foraminal narrowing. C5-6: Disc degeneration. Posterior disc bulge. Mild spinal canal narrowing. No neural foraminal narrowing. C6-7: Shallow disc bulge. Minimal spinal canal narrowing. No neural foraminal narrowing. C7-T1: Mild facet arthropathy. No spinal canal or neural foraminal narrowing. Impression: 1. Mild cervical spondylosis without spinal canal or neural foraminal stenosis. Discharge Plan Discharge Clinical Impression: Acute neck pain, Arm pain, left Patient Disposition: Home, Self-Care Condition: Stable Instructions: Acute Neck Pain (ED) Additional Instructions: Please come back to the ER right away if you have worsening symptoms especially worsening numbness or pain in your arm, or if you have new symptoms such as fever, or severe headache. Please follow-up with your regular doctor or with the [facility] within the next 3-5 days. To make an appointment with the spine clinic you can call [phone]. It is okay to use regular fxqa-koe-colmhwy medications such as Tylenol or ibuprofen for your pain. Use the prescription pain killer ([place]) if needed. Be careful with [place] because it can cause dizziness, drowsiness, sedation, and can be addictive. Do not drive a car for 6 hours after taking [place]. Prescriptions: New hydrocodone-acetaminophen 5-325 mg tablet 1 tab PO Q6H PRN (Reason: pain) Qty: 10 0RF methylprednisolone [Medrol (Jefe)] 4 mg tablets,dose pack See Rx Instructions .ROUTE .COMPLEX Qty: 21 0RF Rx Instructions: orally per package directions No Action citalopram 20 mg tablet 30 mg PO QDAY Qty: 135 3RF lorazepam 0.5 mg tablet 0.5 mg PO TID PRN (Reason: anxiety) Qty: 30 0RF Follow Up/Referrals: Humberto Boyd MD [Primary Care Provider] - Stand Alone Forms: Work/School Release, [employer] Info Instructions
--- NOTE | 2025-02-18 13:39 | CRLHL7_ITS ---
For Patients: As a result of the Century Cures Act, medical imaging exams and procedure reports are released immediately into your electronic medical record. You may view this report before your referring provider. If you have questions, please contact your health care provider. Indication: Neck pain. Left shoulder pain. Technique: Multiplanar multisequence noncontrast MR images of the cervical spine. Comparison: CT cervical spine 07/06/2022. Findings: Artifact degrades the axial T2 medic sequence. Ssjn-ru-vymjgerr leftward cervical curvature. Straightening of the cervical lordosis. Vertebral heights are maintained. No acute fracture, spondylolisthesis, or traumatic subluxation. No T1 hypointense lesions or marrow edema the cervical cord is normal in signal intensity. C2-3: No spinal canal or neural foraminal narrowing. C3-4: Annular bulge. No spinal canal or neural foraminal narrowing. C4-5: Annular bulge. No spinal canal or neural foraminal narrowing. C5-6: Disc degeneration. Posterior disc bulge. Mild spinal canal narrowing. No neural foraminal narrowing. C6-7: Shallow disc bulge. Minimal spinal canal narrowing. No neural foraminal narrowing. C7-T1: Mild facet arthropathy. No spinal canal or neural foraminal narrowing. Impression: 1. Mild cervical spondylosis without spinal canal or neural foraminal stenosis. Dictated by Brendan Parada MD @ 02/18/2025 3:04:04 PM (Electronically Signed)
[2025-02-18] MEDS: predniSONE 20 MG TABLET 40 MG PO (14:17)
[2025-02-18] MEDS: KETOROLAC 30 MG/ML inj IM (14:22)
[2025-02-18 15:18] VITALS: BP 108/74; PULSE 82; RESP 16; O2SAT 99
--- OUTSIDE RECORDS SUMMARY | 2025-02-18 19:05 | XMS_ITS | Clinical Summary ---
Author Organization [facility] Address [address] [address] Phone Care Team Providers Care Lehr Tender Name Role Phone Unavailable Primary Care [...] on file Legal Sex Female 12:00 PM PRECISION HONING MACHINE OPERATOR Gender Identity Not on file Sexual Orientation Not on file Last Filed Vital Signs Vital Sign Reading Time Taken Comments Blood Pressure 144/91 11/21/2023 12:53 PM PRECISION HONING MACHINE OPERATOR Pulse 78 11/21/2023 12:53 PM PRECISION HONING MACHINE OPERATOR Temperature 36.6 C (97.8 F) 11/21/2023 12:53 PM PRECISION HONING MACHINE OPERATOR Respiratory Rate 24 11/21/2023 12:53 PM PRECISION HONING MACHINE OPERATOR Oxygen Saturation 100% 11/21/2023 12:53 PM PRECISION HONING MACHINE OPERATOR Inhaled Oxygen Concentration - - Weight - - Height - - Body Mass Index - - Plan of Treatment Not on file Insurance [employer]
--- OUTSIDE RECORDS SUMMARY | 2025-02-18 19:05 | XMS_ITS | Clinical Summary ---
Author Organization [facility] Address [address] [place] [address] Care Team Providers Care Chemical Engineering Professor Name Role Phone Jennifer Gay DO Primary [...] 08/17/2014 Arrest of dilation, delivered, current hospitali rust 08/17/2014 delivery delivered 08/17/2014 Supervision of high-risk [...] Living 4 6 ROOT, BB ONE Delivery Location:[facility] 014 Term 38w 2d 2.58 kg (5 lb 11 oz) F CS-LT ranv Living 8 9 ROOT, BG TWO Delivery Location:[facility] Last Filed Vital Signs Vital Sign Reading [...] Procedure Name Priority Date/Time Associated Diagnosis Comments CODE ENFORCEMENT INSPECTOR THIN PREP PAP SCREEN IMAGED Routine 07/03/2019 9:30 AM CDT from Last 3 Months or Most Recently Relevant to Health Maintenance Results * CODE ENFORCEMENT INSPECTOR THIN PREP PAP SCREEN IMAGED (07/03/2019 9:30 AM CDT) Case Report Gynecologic Cytology Report Case: [id number] Authorizing Provider: Humberto Boyd MD Collected: 07/03/2019 0930 Ordering Location: [facility] Received: 07/03/2019 1728 First Screen: Roxanne Mcleod Specimen: CODE ENFORCEMENT INSPECTOR ThinPrep Vial Screening, Cervical/Vaginal 07/15/2019 1:37 PM CDT [employer] [facility] ENTRAL LABORATORY INTERPRETATION/ RESULT NEGATIVE FOR INTRAEPITHELIAL LESION OR MALIGNANCY (NIL) (none) 07/15/2019 1:37 PM CDT [facility] ENTRAL LABORATORY at 1337 CDT SPECIMEN ADEQUACY Satisfactory for evaluation Endocervical component present 07/15/2019 1:37 PM CDT [facility] ENTRAL LABORATORY HPV REQUEST HPV and PAP 07/15/2019 1:37 PM CDT [facility] EN[facility] Date of LMP 06/07/2019 07/15/2019 1:37 PM CDT [facility] ENTR[facility] LAB[facility]AT[facility] Last Pap Date 07/15/2019 1:37 PM CDT [facility] EN[facility] Comment:2012 Automated Review Successful 07/15/2019 1:37 PM CDT [facility] EN[facility] Comment:Specimen processed s uccessfully by automated furnace installer device, ThinPrep Imaging System, [employer] ANCILLARY TESTING CODE ENFORCEMENT INSPECTOR HPV Ordered, Please see separate report 07/15/2019 1:37 PM CDT [facility] ENTRAL [facility]AT[facility] Note The pap test is [...] lesions. Cytology is screened and interpreted at [facility] - [address], [place] [address] and [facility] - [address]; [place] [address] and [facility] - [address]; [place] [address] and [facility] [address]; [place] [address] 07/15/2019 1:37 PM CDT [facility] ENTRAR LABORATORY Other (Cervical/Vagina l) 07/03/2019 9:30 AM CDT 07/03/2019 5:28 PM CDT us Humberto Boyd MD PATHOLOGY/CYTOLOGY Final Re [facility]ult [facility] [address] [place] [address], [place] from Last 3 Months or Most Recently Relevant to Health Maintenance Insurance [facility] Advance Directives * Full Code (Latest Code Status on File) Date Activated Date Inactivated Comments 08/15/2014 4:19 PM 08/17/2014 2:45 PM Care Teams Chemical Engineering Professor Relationship Specialty Start Date End Date Jennifer Gay DO [address] [address] PCP - General Obstetrics and Gynecology 06/17/14
== END 2025-02-18 16:05 | disposition home or self-care (01) ==
PROVIDERS: Emergency Provider Emergency Medicine; PCP Family Medicine
DX: M54.2 Cervicalgia (principal); M79.602 Pain in left arm
CPT/HCPCS: 72141; 96372; 99283; 99284; J1885; J7512

== ENCOUNTER 2025-09-28 16:50 | Outpatient (CLI) | payer OTHER, SELFPAY | END 2025-09-28 16:51 | disposition home or self-care (01) | LOC: NFLDREF 10-02 18:11 | PROVIDERS: PCP Family Medicine; Referring Provider Family Medicine | DX: R10.A0 Flank pain, unspecified side (principal); N12 Tubulo-interstitial nephritis, not specified as acute or chronic | CPT/HCPCS: 87086 ==